=== PATIENT | male | born 1940 | race Caucasian/White ===

== ENCOUNTER 2022-09-08 09:30 | Outpatient (CLI) | payer MEDICARE, OTHER ==
[2022-09-08 11:45] LABS: BASOPHILS % (AUTO) 0.2 %; EOSINOPHILS % (AUTO) 0.2 %; HCT - HEMATOCRIT 25.1 % (42.0-52.0); HGB - HEMOGLOBIN 7.3 g/dL (14.0-18.0); LYMPHOCYTES # (AUTO) 1.2 10^3/uL (1.5-3.5); LYMPHOCYTES % (AUTO) 7.4 %; MEAN CORPUSCULAR HEMOGLOBIN 21.9 pg (27.0-31.0); MEAN CORPUSCULAR HGB CONC 29.1 g/dL (32.0-36.0); MEAN CORPUSCULAR VOLUME 75.1 fL (80.0-94.0); MEAN PLATELET VOLUME 8.7 fL (7.4-11.4); MONOCYTES # (AUTO) 1.4 10^3/uL (0.0-1.0); MONOCYTES % (AUTO) 8.6 %; NEUTROPHILS # (AUTO) 13.3 10^3/uL (1.5-6.6); NEUTROPHILS % (AUTO) 79.9 %; PLT - PLATELET COUNT 586 10^3/uL (130-450); RED BLOOD COUNT 3.34 10^6/uL (4.70-6.10); RED CELL DISTRIBUTION WIDTH 18.6 % (12.0-15.0); WHITE BLOOD COUNT 16.7 x10^3/uL (4.8-10.8)
[2022-09-08 12:17] LABS: SLIDE REVIEW? Indicated
[2022-09-08 12:18] LABS: PLATELET ESTIMATE, MANUAL INCREASED (>450,000) (NORMAL); PLATELET MORPHOLOGY NORMAL APPEARANCE (NORMAL); RBC MORPHOLOGY (MULTIPLE) 2+ HYPOCHROMASIA (NORMAL)
[2022-09-08 12:36] LABS: ALBUMIN 1.5 g/dL (3.2-5.5); ALBUMIN/GLOBULIN RATIO 0.3 (1.0-2.2); BILIRUBIN,TOTAL 1.3 mg/dL (0.2-1.0); CALCIUM 7.9 mg/dL (8.5-10.3); CREATININE 0.9 mg/dL (0.6-1.2); POTASSIUM 3.8 mmol/L (3.5-5.0); TOTAL PROTEIN 6.9 g/dL (6.7-8.2)
[2022-09-08 12:54] LABS: THYROID STIMULATING HORMONE 1.88 uIU/mL (0.34-5.60)
== END 2022-09-08 09:45 | disposition home or self-care (01) ==
LOC: LAB.N 09:30
PROVIDERS: ATTEND Family Medicine
DX: D50.9 Iron deficiency anemia, unspecified (principal); R42 Dizziness and giddiness; R63.0 Anorexia
CPT/HCPCS: 36415; 80053; 83690; 84443; 85025

== ENCOUNTER 2022-09-09 20:12 | Emergency (ER) | payer MEDICARE, OTHER ==
[2022-09-09] MEDS ORDERED: CALCIUM GLUC 1,000MG/50ML-NACL 1,000 MG/50 ML BAG IV STA (20:27)
[2022-09-09 20:45] LABS: HCT - HEMATOCRIT 28.2 % (42.0-52.0); HGB - HEMOGLOBIN 8.2 g/dL (14.0-18.0)
--- NOTE | 2022-09-09 22:12 | ED Physician Documentation ---
History of Present Illness - Stated complaint Stated Complaint: BLOOD TRANSFUSION - Chief complaint Chief Complaint: General - History obtained from History obtained from: Patient - Additonal information Additional information: 82-year-old man with history of iron deficiency anemia presents with outpatient hemoglobin of 7.2 and request by his primary care provider Dr. Montgomery for blood transfusion. Patient states he has been feeling weak for the past couple months but denies other symptoms. He denies blood in the stool or dark stools. PD PAST MEDICAL HISTORY - Allergies Allergies/Adverse Reactions: Allergies Allergy/AdvReac Type Severity Reaction Status Date / Time No Known Drug Allergies Allergy Verified 09/09/22 20:25 PD ED PE NORMAL - Vitals Vital signs reviewed: Yes - General General: Alert and oriented X 3, No acute distress, Well developed/nourished - HEENT HEENT: Atraumatic, PERRL, EOMI - Neck Neck: Supple, no meningeal sign - Cardiac Cardiac: RRR - Respiratory Respiratory: No respiratory distress, Clear bilaterally - Abdomen Abdomen: Non tender, Non distended - Rectal Rectal: Other (brown stool on DAYANNA) Results - Vitals Vitals: Vital Signs - 24 hr 09/09/22 09/09/22 20:19 20:25 Temperature 37.3 C Heart Rate 108 H 99 Respiratory 17 16 Rate Blood Pressure 138/79 H 130/72 O2 Saturation 98 99 Oxygen O2 Source Room air - Labs Labs: Laboratory Tests 09/09/22 09/09/22 09/09/22 20:37 20:37 21:50 Hgb 8.2 L Hct 28.2 L Blood Type A NEGATIVE Blood Type Recheck A NEGATIVE Antibody Screen NEGATIVE Crossmatch IS Only See Detail PD Medical Decision Making - ED course ED course: 82-year-old man presents for chronic weakness, request from pcp for blood transfusion. His digital rectal exam uncovered no blood and Hemoccult test was sent. He will receive blood transfusion here in the emergency department and follow-up outpatient with Dr. Montgomery. Departure - Departure Clinical Impression: Anemia, Weakness, Hypocalcemia Condition: Stable Discharge Date/Time: 09/09/22 22:11
[2022-09-10 01:35] VITALS: BP 120/74
== END 2022-09-10 01:34 | disposition home or self-care (01) ==
LOC: ED 20:12
DX: D64.9 Anemia, unspecified (principal); R53.1 Weakness; E83.51 Hypocalcemia
CPT/HCPCS: 36415; 36430; 82272; 85014; 85018; 86850; 86900; 86901; 86920; 96365; 99283; 99285; P9016; 82270

== ENCOUNTER 2022-09-14 10:20 | Outpatient (CLI) | payer MEDICARE, OTHER ==
[2022-09-14 10:46] LABS: BASOPHILS % (AUTO) 0.3 %; EOSINOPHILS % (AUTO) 0.2 %; HCT - HEMATOCRIT 29.6 % (42.0-52.0); HGB - HEMOGLOBIN 8.7 g/dL (14.0-18.0); LYMPHOCYTES % (AUTO) 11.5 %; MEAN CORPUSCULAR HEMOGLOBIN 22.7 pg (27.0-31.0); MEAN CORPUSCULAR HGB CONC 29.4 g/dL (32.0-36.0); MEAN CORPUSCULAR VOLUME 77.3 fL (80.0-94.0); MEAN PLATELET VOLUME 8.2 fL (7.4-11.4); MONOCYTES % (AUTO) 9.7 %; NEUTROPHILS % (AUTO) 75.2 %; PLT - PLATELET COUNT 486 10^3/uL (130-450); RED BLOOD COUNT 3.83 10^6/uL (4.70-6.10); RED CELL DISTRIBUTION WIDTH 19.5 % (12.0-15.0); WHITE BLOOD COUNT 16.7 x10^3/uL (4.8-10.8)
[2022-09-14 10:48] LABS: SLIDE REVIEW? Indicated
[2022-09-14 10:59] LABS: ALBUMIN 1.6 g/dL (3.2-5.5); ALBUMIN/GLOBULIN RATIO 0.3 (1.0-2.2); CALCIUM 8.2 mg/dL (8.5-10.3); TOTAL PROTEIN 7.5 g/dL (6.7-8.2)
[2022-09-14 11:13] LABS: ABNORMAL LYMPHS % (MANUAL) 0 %
[2022-09-14 11:18] LABS: FERRITIN 980.2 ng/mL (23.9-336.2)
[2022-09-14 11:20] LABS: BAND NEUTROPHILS % (MANUAL) 4 %; DIFFERENTIAL COMMENT MANUAL DIFFERENTIAL; EOSINOPHILS # (MANUAL) 0.2 10^3/uL (0-0.7); LYMPHOCYTES # (MANUAL) 2.2 10^3/uL (1.5-3.5); LYMPHOCYTES % (MANUAL) 7 %; MONOCYTES # (MANUAL) 1.2 10^3/uL (0.0-1.0); MYELOCYTES % (MANUAL) 2 %; NEUTROPHILS # (MANUAL) 12.9 10^3/uL (1.5-6.6); REACTIVE LYMPHS % (MANUAL) 6 %
[2022-09-14 11:22] LABS: FOLATE 8.34 ng/mL (5.90 - >24.8)
[2022-09-15 03:09] LABS: HEPATITIS B SURFACE AB QUANT 598.7 mIU/mL (Immunity>9.9)
[2022-09-15 09:44] LABS: % IRON SATURATION 12 % (20-50); GAMMA GLUTAMYL TRANSPEPTIDASE 52 IU/L (8-55); IRON 17 ug/dL (45-182); TOTAL IRON BINDING CAPACITY 144 ug/dL (250-450); TRANSFERRIN 103 mg/dL (180-329)
[2022-09-15 16:08] LABS: HCV AB Non Reactive (Non Reactive); HIV SCREEN 4TH GENERATION Non Reactive (Non Reactive)
== END 2022-09-14 10:21 | disposition home or self-care (01) ==
LOC: LAB 10:20
PROVIDERS: ATTEND Nurse Practitioner Family
DX: D47.3 Essential (hemorrhagic) thrombocythemia (principal); D72.829 Elevated white blood cell count, unspecified; R94.5 Abnormal results of liver function studies; R63.0 Anorexia; R42 Dizziness and giddiness; I25.10 Atherosclerotic heart disease of native coronary artery without angina pectoris; D50.9 Iron deficiency anemia, unspecified; R06.09 Other forms of dyspnea
CPT/HCPCS: 36415; 80053; 82607; 82728; 82746; 82977; 83010; 83540; 84466; 85025; 86317; 86592; 86704; 86803; 87340; G0475; 87389

== ENCOUNTER 2022-09-16 08:00 | Outpatient (CLI) | payer MEDICARE, OTHER ==
[2022-09-16 11:59] LABS: BILIRUBIN,URINE NEGATIVE (NEGATIVE); GLUCOSE, URINE (UA) NEGATIVE (NEGATIVE); KETONES,URINE (UA) NEGATIVE (NEGATIVE); LEUKOCYTE ESTERASE, URINE NEGATIVE (NEGATIVE); NITRITE,URINE NEGATIVE (NEGATIVE); OCCULT BLOOD,URINE NEGATIVE (NEGATIVE); PH,URINE 5.5 PH (5.0-7.5); PROTEIN,URINE NEGATIVE (NEGATIVE); UROBILINOGEN,URINE 1 (NORMAL) E.U./dL (NORMAL)
[2022-09-16 12:01] LABS: CLARITY,URINE CLEAR (CLEAR)
[2022-09-16 12:21] LABS: BACTERIA,URINE Few /HPF (None Seen); CASTS, URINE 0-2 Course Granular /LPF; MUCUS,URINE Few Strands; RBC,URINE 0-5 /HPF (0-5); SQUAMOUS EPITHELIAL CELL,UR NONE SEEN (<= Few); WBC,URINE 0-3 /HPF (0-3)
== END 2022-09-16 23:59 | disposition home or self-care (01) ==
LOC: LAB.N 08:00
PROVIDERS: ATTEND Nurse Practitioner Family
DX: D50.9 Iron deficiency anemia, unspecified (principal)
CPT/HCPCS: 81001

== ENCOUNTER 2022-09-18 12:24 | Outpatient (CLI) | payer MEDICARE, OTHER ==
[2022-09-18] MEDS ORDERED: iohexoL-300 100 ML VIAL ONE (13:39)
[2022-09-18] MEDS ORDERED: DIATR MEGLU/DIATRIZOATE SODIUM 120 ML BOTTLE ONE (13:39)
[2022-09-18] MEDS ORDERED: iohexoL-300 100 ML VIAL IVP ONE (16:07)
[2022-09-18] MEDS ORDERED: DIATRIZOATE MEGLU/DIATRIZO SOD 30 ML BOTTLE PO ONE (16:08)
--- NOTE | 2022-09-18 20:11 | CT Report ---
PROCEDURE: ABDOMEN/PELVIS W INDICATIONS: ABN LIVER FUNCTION TEST, LEUKOCYTOSIS, ANOREXIA CONTRAST: 100ml omni 300 TECHNIQUE: After the administration of IV and oral contrast, 5 mm thick sections acquired from the diaphragms to the symphysis. 5 mm thick coronal and sagittal reformats were acquired. For radiation dose reducti on, the following was used: automated exposure control, adjustment of mA and/or kV according to cynthia ent size. COMPARISON: None FINDINGS: Image quality: Adequate. There is respiratory motion and poor definition of some organs.. Lung bases and heart: Median sternotomy and postsurgical changes. No pulmonary parenchymal consolidat ions. Mild subpleural bibasilar reticulation. Liver: No solid masses. Gallbladder and biliary tree: Not well seen due to motion artifact. Cholelithiasis cannot be excluded . No significant biliary dilatation. Spleen: The spleen appears moderately enlarged. There are innumerable ill-defined rounded hypodensiti es throughout the spleen. The splenic vein is patent. Pancreas: Normal without ductal dilatation. Adrenals: No mass. Kidneys and ureters: No hydronephrosis. No renal cystic lesion which requires follow up. No solid mas s. Bowel and peritoneum: Stomach and small bowel loops are within normal limits. No colonic wall thicken ing. Pelvis is obscured by beam hardening artifact. Lymph nodes: No central or retroperitoneal adenopathy. Vessels: No infrarenal aortic aneurysm. PELVIS Reproductive organs: Probably mildly enlarged prostate gland but partially obscured by hip arthroplas ties. Bladder: Not well seen. Pelvic lymph nodes: No visible nodes. Bones: Bilateral hip arthroplasty components are present. There are severe degenerative disc and endp late changes in the upper lumbar and lower thoracic spine. No suspicious bone lesions. Other: No significant ventral or inguinal hernia. IMPRESSION: 1. Innumerable hypodensities within enlarged spleen. Differential diagnosis includes both benign and malignant etiologies. Three-phase contrast-enhanced MRI and/or comparison to any prior studies is rec ommended. 2. No bulky adenopathy in the abdomen or pelvis. 3. Suboptimal visualization of the gallbladder due to artifact. Reviewed by: Tali Arriola MD on 09/18/2022 7:10 PM [facility] Approved by: Tali Arriola MD on 09/18/2022 7:10 PM [facility]DT Station ID: [id number]
== END 2022-09-18 12:25 | disposition home or self-care (01) ==
LOC: DI 12:24
PROVIDERS: ATTEND Nurse Practitioner Family
DX: D47.3 Essential (hemorrhagic) thrombocythemia (principal); D72.829 Elevated white blood cell count, unspecified; R94.5 Abnormal results of liver function studies; R63.0 Anorexia; R42 Dizziness and giddiness; I25.10 Atherosclerotic heart disease of native coronary artery without angina pectoris; D50.9 Iron deficiency anemia, unspecified; R06.09 Other forms of dyspnea; D73.9 Disease of spleen, unspecified
CPT/HCPCS: 74177; Q9963; Q9967

== ENCOUNTER 2022-09-21 10:51 | Outpatient (CLI) | payer MEDICARE, OTHER ==
[2022-09-21 11:12] LABS: BASOPHILS % (AUTO) 0.2 %; EOSINOPHILS % (AUTO) 0.1 %; HCT - HEMATOCRIT 28.6 % (42.0-52.0); HGB - HEMOGLOBIN 8.3 g/dL (14.0-18.0); LYMPHOCYTES # (AUTO) 1.3 10^3/uL (1.5-3.5); MEAN CORPUSCULAR VOLUME 75.9 fL (80.0-94.0); MEAN PLATELET VOLUME 8.2 fL (7.4-11.4); MONOCYTES # (AUTO) 1.5 10^3/uL (0.0-1.0); MONOCYTES % (AUTO) 9.1 %; NEUTROPHILS # (AUTO) 12.9 10^3/uL (1.5-6.6); NEUTROPHILS % (AUTO) 80.8 %; PLT - PLATELET COUNT 473 10^3/uL (130-450); RED BLOOD COUNT 3.77 10^6/uL (4.70-6.10); RED CELL DISTRIBUTION WIDTH 19.2 % (12.0-15.0); WHITE BLOOD COUNT 15.9 x10^3/uL (4.8-10.8)
[2022-09-21 11:23] LABS: ALBUMIN 1.5 g/dL (3.2-5.5); ALBUMIN/GLOBULIN RATIO 0.3 (1.0-2.2); BILIRUBIN,TOTAL 0.9 mg/dL (0.2-1.0); CREATININE 1.1 mg/dL (0.6-1.2); POTASSIUM 3.9 mmol/L (3.5-5.0); TOTAL PROTEIN 7.1 g/dL (6.7-8.2)
[2022-09-22 06:10] LABS: HBsAG SCREEN Negative (Negative); HEPATITIS B CORE IGM AB Negative (Negative); HEPATITIS BE ANTIGEN Negative (Negative)
[2022-09-23 08:10] LABS: HEPATITIS BE ANTIBODY Negative (Negative)
== END 2022-09-21 10:52 | disposition home or self-care (01) ==
LOC: LAB 10:51
PROVIDERS: ATTEND Family Medicine
DX: D50.9 Iron deficiency anemia, unspecified (principal); B19.10 Unspecified viral hepatitis B without hepatic coma; R93.5 Abnormal findings on diagnostic imaging of other abdominal regions, including retroperitoneum; D72.829 Elevated white blood cell count, unspecified; D75.839 Thrombocytosis, unspecified; R94.5 Abnormal results of liver function studies
CPT/HCPCS: 36415; 80053; 85025; 86705; 86707; 87340; 87350

== ENCOUNTER 2022-09-27 08:15 | Outpatient (CLI) | payer MEDICARE, OTHER ==
[2022-09-27] MEDS ORDERED: GADOBUTROL 7.5 MMOL/7.5 ML VIAL ONE (08:43)
--- NOTE | 2022-09-27 11:19 | MRI Report ---
PROCEDURE: ABDOMEN W/WO INDICATIONS: ABN SPLEEN IMAGING CONTRAST: gadavist 6.9ml TECHNIQUE: Coronal ultra fast SE, axial 2D spoiled GE in- and [id number]; axial breath-hold T2 fast SE. Dynam ic axial ultra fast GE during the administration of contrast; post-contrast coronal ultra fast GE or 2D spoiled GE with fat saturation from the hepatic dome to the iliac crests. Optional diffusion weig hted imaging and ADC may be performed. COMPARISON: 09/18/2022 FINDINGS: Image quality: Motion degraded Lower chest: Lungs are not well evaluated on this study. No basal effusions. Solid organs: No definite liver lesion. Cholelithiasis. Distended gallbladder. No pathologic dilation of the biliary tree or pancreatic duct. No adrenal nodules. There are renal cysts. Bilateral renal c ortical thinning. No hydronephrosis. Spleen measures about 14 cm, which is mildly enlarged. Mild heterogeneity in the spleen on T2-weighte d images. In numerable small heterogeneous lesions are seen in the arterial phase and portal venous p hase, with decreased conspicuity in the delayed phase. Vessels and lymph nodes: No abdominal aortic aneurysm. No definite adenopathy by size criteria. Bowel and peritoneum: No pathologic ascites or bowel obstruction. Body wall: Unremarkable Bones: Degenerative changes, no definite marrow replacement or pathologic enhancement. IMPRESSION: Mild splenomegaly. Innumerable possible spleen lesions seen after gadolinium, confirming CT findings, but without significant signal abnormality on T2, diffusion, precontrast, or delayed phase imaging. Findings could represent variant heterogeneous splenic perfusion versus innumerable benign angiomatou s lesions. A primary confluent malignancy in the spleen with this appearance is considered unlikely, however close interval follow-up imaging (3 months or less) and correlation with hematologic laborato ry studies and any patient hematologic or malignancy history is suggested. Reviewed by: Dionicio Chaudhary MD on 09/27/2022 11:18 AM PDT Approved by: Dionicio Chaudhary MD on 09/27/2022 11:18 AM PDT Station ID: [id number]
[2022-09-27] MEDS ORDERED: GADOBUTROL 7.5 MMOL/7.5 ML VIAL IVP ONE (15:00)
== END 2022-09-27 08:16 | disposition home or self-care (01) ==
LOC: DI 08:15
PROVIDERS: ATTEND Family Medicine
DX: R16.1 Splenomegaly, not elsewhere classified (principal)
CPT/HCPCS: 74183; A9585

== ENCOUNTER 2022-10-29 16:06 | Emergency (ER) | payer MEDICARE, OTHER ==
[2022-10-29] MEDS ORDERED: SODIUM CHLORIDE 0.9% 500 ML IV ONE (16:13)
[2022-10-29] MEDS ORDERED: FUROSEMIDE 20 MG/2 ML VIAL IVP PRN (16:13)
--- NOTE | 2022-10-29 17:05 | ED Physician Documentation ---
History of Present Illness - Stated complaint Stated Complaint: WEAKNESS - Chief complaint Chief Complaint: General - Additonal information Additional information: 82-year-old male presents to the emergency department on the advice of his onc ologist for evaluation and treatment of anemia. The patient is found to have a hemoglobin today of 7.2. He is reporting feeling increasingly weak with near syncope about 2 days ago. He has also been having some feelings of being lightheaded. He has been worked up for leukemia he has been noted to have a CT scan that showed innumerable splenic lesions and splenomegaly. In review of the labs obtained today through the [facility] he is noted to have a hemoglobin of 7.2 this is downtrending from recent labs which showed a hemoglobin in the 9-10 range. Patient reports to me that he knows that he has cancer and does not want treatment for the cancer. He would like to be referred for hospice. He is requesting the blood transfusion today as he feels it will make him better but he is not interested in pursuing treatment for the leukemia Review of Systems Constitutional: reports: Myalgias, Weight Loss Cardiac: reports: Other (Near syncope). denies: Chest pain / pressure, Palpitations Respiratory: reports: Reviewed and negative GI: reports: Reviewed and negative : reports: Reviewed and negative Skin: reports: Reviewed and negative PD PAST MEDICAL HISTORY - Past Surgical History Past Surgical History: Yes Ortho: Hip replacement, Knee replacement Cardiovascular: CABG - Present Medications Home Medications: Ambulatory Orders Medication Instructions Recorded Confirmed Aspirin [Aspirin Regimen] 81 mg PO DAILY 10/01/22 10/29/22 Atorvastatin Calcium [Lipitor] 80 mg PO DAILY 10/01/22 10/29/22 Famotidine [Pepcid] 20 mg PO BID 10/01/22 10/29/22 Ferrous Sulfate [Feosol] 325 mg PO BID 10/01/22 10/29/22 Omeprazole 20 mg PO DAILY 10/01/22 10/29/22 allopurinoL [Zyloprim] 100 mg PO BID 10/01/22 10/29/22 - Allergies Allergies/Adverse Reactions: Allergies Allergy/AdvReac Type Severity Reaction Status Date / Time No Known Drug Allergies Allergy Verified 10/29/22 15:42 - Social History Does the pt smoke?: No Smoking Status: Never smoker Does the pt drink ETOH?: No Does the pt have substance abuse?: No - Immunizations Immunizations are current?: Yes - POLST Patient has POLST: No PD ED PE NORMAL - General General: Alert and oriented X 3, No acute distress, Well developed/nourished - HEENT HEENT: Atraumatic - Neck Neck: Supple, no meningeal sign, No JVD - Cardiac Cardiac: RRR, No murmur - Respiratory Respiratory: No respiratory distress, Clear bilaterally - Abdomen Abdomen: Normal bowel sounds, Soft - Derm Derm: Normal color, Warm and dry - Extremities Extremities: No deformity - Neuro Neuro: Alert and oriented X 3, 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 Eye Opening: Spontaneous Motor: Obeys Commands Verbal: Oriented GCS Score: 15 Results - Vitals Vitals: Vital Signs - 24 hr 10/29/22 10/29/22 10/29/22 16:18 17:59 18:46 Temperature 36.6 C 36.9 C Heart Rate 102 H 94 Heart Rate [ 91 Monitoring electrodes] Respiratory 20 20 19 Rate Blood Pressure 112/68 119/64 Blood Pressure 123/59 L [Right Brachial artery] O2 Saturation 97 98 98 10/29/22 10/29/22 10/29/22 19:02 20:41 20:50 Temperature 37.1 C 37.2 C 37.4 C Heart Rate Heart Rate [ 94 96 95 Monitoring electrodes] Respiratory 19 24 14 Rate Blood Pressure Blood Pressure 112/64 111/58 L 108/58 L [Right Brachial artery] O2 Saturation 99 96 100 10/29/22 10/29/22 21:11 21:32 Temperature 37.7 C 37.7 C Heart Rate Heart Rate [ 94 Monitoring electrodes] Respiratory 18 Rate Blood Pressure Blood Pressure 110/69 [Right Brachial artery] O2 Saturation 97 Oxygen O2 Source Room air - Labs Labs: Laboratory Tests 10/29/22 16:31 Blood Type A NEGATIVE Antibody Screen NEGATIVE Crossmatch IS Only See Detail PD Medical Decision Making - ED course Complexity details: reviewed results, re-evaluated patient, d/w patient ED course: 82-year-old male was referred to the emergency department by his oncologist at the [facility] for and RBC infusion. 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 Hemoglobin today was 7.2. The patient's had some fainting and near syncope recently as such though this is just above the threshold for transfusion he appears symptomatic and we will administer him 2 units of packed red blood cells. In discussion with the patient he indicates to me that he is 82 and aware that he likely has a severe leukemia and he is interested in not pursuing any treatment related to the leukemia and and is instead more interested in palliative or hospice care. He has requested I place a palliative care consult which I have done. In the interim the patient is scheduled to see his oncologist next week in follow-up of today's visit. Patient will be signed out to my nighttime colleague to follow-up on the PRBC infusion. Once complete he is stable for discharge home. 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 Over the last several months you have been getting increasingly sick and your oncologist is concerned that you could have a form of leukemia. We did give you 2 units of red blood cells today. This should make you feel better over the next several weeks. You have indicated to me that you are interested in pursuing palliative or hospice care with your new diagnosis of leukemia. I have placed a palliative care consult. You can also discuss your wishes with your oncologist Please return to the emergency department if you have any worsening symptoms, fainting, chest pain or shortness of air.
--- NOTE | 2022-10-29 21:39 | ED Physician Documentation ---
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 Labs and imaging reviewed, patient evaluated independently at bedside. Signed out to me with blood product ongoing. Patient did have febrile transfusion reaction but denied any myalgias, shaking chills or other symptoms that would be of eminent concern for acute hemolytic reaction. Transfusion protocol was initiated and blood product was sent to lab for approp riate processing. He initially declined Tylenol however he did ultimately excepted with significant improvement in his fever. He was monitored for an additional 90 minutes after the completion of his transfusion without any new or worsening symptoms. At this time I believe it is safe for him to be discharged home with return precautions given prior to discharge.
[2022-10-29] MEDS ORDERED: ACETAMINOPHEN 325 MG TABLET PO STA ×2 (21:43→23:03)
[2022-10-30 00:18] VITALS: BP 105/95
== END 2022-10-30 00:19 | disposition home or self-care (01) ==
LOC: ED 16:06
DX: D61.9 Aplastic anemia, unspecified (principal); C93.10 Chronic myelomonocytic leukemia not having achieved remission
CPT/HCPCS: 36415; 36430; 81599; 86850; 86900; 86901; 86920; 87040; 87205; 96361; 96374; 99284; 99285; A9270; P9040

== ENCOUNTER 2022-11-13 06:23 | Outpatient (CLI) | payer MEDICARE, OTHER | END 2022-11-13 23:59 | disposition EMS.NT | LOC: EMS 06:23 | DX: R53.1 Weakness (principal) ==

== ENCOUNTER 2022-11-16 05:21 | Outpatient (CLI) | payer MEDICARE, OTHER | END 2022-11-16 05:22 | disposition EMS.NT | LOC: EMS 05:21 | DX: Z03.89 Encounter for observation for other suspected diseases and conditions ruled out (principal) ==

== ENCOUNTER 2022-11-18 01:21 | Outpatient (CLI) | payer MEDICARE, OTHER | END 2022-11-18 23:59 | disposition left against medical advice (07) | LOC: EMS 01:21 | DX: Z03.89 Encounter for observation for other suspected diseases and conditions ruled out (principal) ==